=== PATIENT | female | born 2000 | race Caucasian/White ===

== ENCOUNTER 2024-07-14 15:51 | Emergency (ER) | payer BC, SELFPAY ==
[2024-07-14 16:04] VITALS: BP 121/77
[2024-07-14 17:18] LABS: % Basophils 0.6 % (0-2); % Eosinophils 1.7 % (0-6); % Immature Granulocytes 0.3 % (0-0.5); % Lymphocytes 29.8 % (20.5-51.1); % Monocytes 18.7 % (1.7-9.3); % Neutrophils 48.9 % (42.2-75.2); Absolute Eosinophils 0.1 10^3/uL (0-0.7); Absolute Lymphocytes 1.1 10^3/uL (1.2-3.4); Absolute Monocytes 0.7 10^3/uL (0.1-0.6); Absolute Neutrophils 1.8 10^3/uL (1.4-6.5); Hematocrit 43.1 % (37.0-47.0); Hemoglobin 15.1 g/dL (12.0-16.0); Mean Corpuscular Hgb 31.5 pg (27.0-31.0); Mean Corpuscular Volume 89.8 fL (81.0-99.0); Mean Platelet Volume 9.4 fL (7.4-10.4); Nucleated Red Blood Cells % 0 %; Platelet Count 235 10^3/uL (130-400); Red Cell Dist. Width 12.1 % (11.5-14.5); White Blood Cell Count 3.6 10^3/uL (4.8-10.8)
[2024-07-14] MEDS: NSS 1000 IV (17:22)
[2024-07-14 17:29] LABS: HCG, Serum Qualitative Screen Negative
[2024-07-14 17:33] LABS: ALT (SGPT) 28 U/L (0-35); AST (SGOT) 27 U/L (14-36); Albumin 4.5 g/dl (3.5-5.0); Alkaline Phosphatase 42 U/L (38-126); Blood Urea Nitrogen 13 mg/dl (7-17); Calcium 9.6 mg/dl (8.4-10.2); Carbon Dioxide 25 mmol/L (22-30); Chloride 105 mmol/L (98-107); Glucose 93 mg/dl (70-99); Potassium 4.7 mmol/L (3.5-5.1); Sodium 141 mmol/L (135-145); Total Bilirubin 0.6 mg/dl (0.2-1.3); Total Protein 6.9 g/dl (6.3-8.2); eGFR > 60.00
[2024-07-14 17:35] LABS: Lipase 21 U/L (23-300)
[2024-07-14 17:40] LABS: Urine Albumin Negative (Neg - Trace); Urine Bilirubin Negative (Negative); Urine Character Clear (Clear); Urine Color Yellow; Urine Glucose Negative (Negative); Urine Ketone Negative (Negative); Urine Leukocyte Negative (Negative); Urine Nitrite Negative (Negative); Urine Occult Blood 3+ (Negative); Urine Urobilinogen Negative (Neg - 1+)
[2024-07-14 17:51] LABS: Urine Bacteria Few (Negative); Urine Red Blood Cell 0-2 /HPF (0-2)
[2024-07-14 17:52] LABS: Urine Mucus Few
--- NOTE | 2024-07-14 21:05 | ED.GENMED ---
History of Present Illness
General
Chief Complaint: Abdominal Symptoms
Source: patient
Exam Limitations: none
Time Seen by Provider: 07/14/24 18:46
Nursing documentation reviewed up to this point in time: agreed with
History of Present Illness
History of Present Illness:
Is a 23-year-old presenting to the emergency department nausea, vomiting, and diarrhea for 5 days. Patient states symptoms started on Thursday with diarrhea which was quickly followed by vomiting. Patient reports that vomiting did stop by Thursday
although diarrhea has unfortunately persisted seems. Diarrhea has been nonbloody and seems to be exacerbated every time she drinks/eats. Patient denies some diffuse crampy abdominal pain and bodyaches, as well. She denies any fever or urinary
symptoms. No chest pain or shortness of breath.
Patient's father had the norovirus last weekend prior to onset of patient symptoms. Patient has no recent antibiotic use or hospitalization. No undercooked seafood/meat.
Patient was seen by her primary care physician she come to the emergency department for IV fluids patient.
Past History
Past History
ED Past Medical History: None
ED Past Surgical History: None
Social History
Tobacco: Non-smoker
Drug: None
Personal: Single
Living: with family
Employment: Student
Review of Systems
Review of Systems
Allergies reviewed?: Yes
All Other Systems: ROS reviewed and negative except as documented in HPI and ROS
Phy Exam
Physical Exam
Physical Exam:
Vitals: Patient's vital signs are stable. Afebrile
General: Patient is well appearing, no acute distress. Nontoxic appearing
Skin: Warm and dry, no rashes or lesions
Head: Normocephalic, atraumatic
Eyes: Sclera nonicteric. EOMs intact. No nystagmus.
Throat: Mildly dry mucous membranes. Protecting airway
Neck: Normal ROM, no cervical spine tenderness, no meningismus
Cardiac: Regular rate and rhythm, no murmurs.
Pulm: Normal respiratory effort, no wheezes, rales, rhonchi heard on exam.
Abdomen: Abdomen soft and nontender. No focal tenderness or tenderness McBurney's point.
Extremities: No evidence of cyanosis or edema. Palpable DP pulses bilaterally
Neuro: AAOx3. Grossly intact.
Psychiatric: Normal affect.
Course
Orders/Labs/Results
Orders:
Orders
07/14/24 16:10
Test Result ONCE
07/14/24 17:08
Complete Blood Count/With Diff Urgent
Comprehensive Metabolic Panel Urgent
HCG, Serum Qualitative Screen Urgent
Lipase Urgent
Magnesium Urgent
Comment: ADDON
Urinalysis Reflex To Culture Urgent
Date Specimen was Collected: 07/14/24
Time Specimen was Collected: 16:10
Urine Microscopic Reflex Cult Urgent
07/14/24 17:22
0.9% Sodium Chloride 1000 ml [Nss] 1,000 ml IV BOLUS
07/14/24 19:26
Add On- LAB Urgent
Tests Added?: magnesium
Abnormal Lab Results
07/14/24
17:08
WBC 3.6 L 10^3/uL
(4.8-10.8)
MCH 31.5 H pg
(27.0-31.0)
Absolute Lymphs (auto) 1.1 L 10^3/uL
(1.2-3.4)
Absolute Monos (auto) 0.7 H 10^3/uL
(0.1-0.6)
Monocytes % 18.7 H %
(1.7-9.3)
Lipase 21 L U/L
(23-300)
Ur Occult Blood Reflex 3+ A
(Negative)
Urine Bacteria (Reflex) Few A
(Negative)
07/14/24 17:08
07/14/24 17:08
Vital Signs
Initial and Last Documented VS:
Initial Vital Signs
Temp Pulse Resp BP Pulse Ox
98.0 F 94 16 121/77 98
07/14/24 16:04 07/14/24 16:04 07/14/24 16:04 07/14/24 16:04 07/14/24 16:04
Last Documented Vital Signs
Temp Pulse Resp BP Pulse Ox
98.0 F 94 16 121/77 98
07/14/24 16:04 07/14/24 16:04 07/14/24 16:04 07/14/24 16:04 07/14/24 16:04
MDM/Problems Addressed
Differential Diagnosis Includes:
Not limited to: Acute dehydration, electrolyte abnormalities, viral gastroenteritis, colitis, etc.
MDM/Problems Addressed:
23-year-old female presenting with 2 days of nausea, vomiting followed by persistent diarrhea and concerns of dehydration. No known fever or significant abdominal pain. Patient's father with similar symptoms last weekend. Vitals and exam as above.
Patient overall well-appearing, in no apparent distress. Abdomen soft with no focal tenderness. Specifically no tenderness at McBurney's point. Cardio/pulmonary assessment unremarkable. Patient has no risk factors for bacterial diarrhea. By my
assessment�screening labs were sent and she has already received a liter of IV fluids and noting significant improvement. Labs showed mild leukopenia�likely secondary to underlying viral illness and normal chemistry panel. Urine was sent which
shows no evidence of infection. Ultimately�given patient is afebrile with no leukocytosis and benign abdominal exam�very low suspicion for acute intra-abdominal infection. With known exposure and history�suspect likely viral gastroenteritis. I
did add on a magnesium level which was also normal. Patient appears well and feels stable for discharge home with primary care follow-up. Did send a prescription for Zofran if nausea returns. Advised stay well-hydrated, bland diet. Close return
precautions discussed. Patient comfortable with plan.
Chronic conditions affecting care:
N/A
Acute Exacerbation and/or Progression of Chronic Illness:
N/A
*Pulse Oximetry
Patient hypoxic: no
*EKG
Interpreted by ED Provider?: NA
*Sewing Department Supervisor Interpretation
Rate: Sewing Department Supervisor- N/A
*Critical Care Note
Total Time (30-74mins, 75-104mins- exclusive of procedures): Not Applicable
ED Attending Note
-
Portions of this chart may have been created with voice recognition software.� Occasional wrong word or��sound alike� substitutions may have occurred due to the inherent limitations of voice recognition software.
Discharge Plan
Departure
Patient Disposition: Home (Routine Discharge)
Date of Disposition: 07/14/24
Time of Disposition: 19:43
Patient with high blood pressure during this ER visit?: No
Condition: Good
Discharge Problem:
Nausea, vomiting and diarrhea
Instructions: Dehydration, Adult (DC), [place] diet, Diarrhea in adults - ED discharge instructions
Prescriptions:
New
ondansetron 4 mg tablet,disintegrating
4 mg PO Q8H PRN (Reason: nausea and vomiting) Qty: 7 0RF
No Action
diphenhydramine HCl [Banophen] 25 MG capsule
25 mg PO HSPRN PRN (Reason: hives)
Bcp
1 tab PO DAILY
acetaminophen-codeine 1 TABLET tablet
1 - 2 tab PO Q4HPRN PRN (Reason: Mod-severe pain) Qty: 30 0RF
cefuroxime axetil 500 MG tablet
500 mg PO BID 7 Days Qty: 14 0RF
sulfamethoxazole-trimethoprim 1 TABLET tablet
1 tab PO BID Qty: 14 0RF
Referrals:
Vida Cage MD [Family Provider] - Follow up in 5-7 days
Activity Restrictions/Additional Instructions:
Return to the emergency department with any fevers, severe abdominal pain, intractable nausea, vomiting, or diarrhea, side severe dehydration, or any other concerns
- As discussed�your lab work showed no acute abnormalities the emergency department. I will contact you if your magnesium level is out of range.
- Prescription has been sent to your pharmacy for Zofran. You can take this up to every 8 hours as needed for nausea.
- It is important stay well-hydrated. Eat bland foods. Take Tylenol and/or Motrin as needed for pain.
Monitor your symptoms closely and return to the emergency department with any acute worsening/new symptoms or any other concerns
Interventions
Interventions:
*Risk Screen - Suicide Last Done: 07/14/24 16:04
*General Assessment Last Done: 07/14/24 17:41
*Neglect/Abuse Screening Last Done: 07/14/24 16:04
*ED COVID-19 Vaccine History Last Done: 07/14/24 17:41
*Nursing Disposition Last Done: 07/14/24 20:04
[facility]-Uhhkfsyk[facility] Assessment Last Done: 07/14/24 17:41
Discharge Date and Time
Discharge Date/Time: 07/14/24 20:05
Print Language: ARABIC
== END 2024-07-14 20:05 | disposition home or self-care (01) ==
LOC: EMR 15:51
PROVIDERS: Emergency Medicine; EMERGENCY PHYSICIAN Student in an Organized Health Care Education/Training Program; FAMILY PHYSICIAN Family Medicine
DX: R11.2 Nausea with vomiting, unspecified (principal); R19.7 Diarrhea, unspecified
CPT/HCPCS: 96360; 99284; 80053; 81003; 81015; 83690; 83735; 84703; 85025